=== PATIENT | male | born 1960 | race African-American/Black ===

== ENCOUNTER → 2020-02-21 | Outpatient (CLI) | payer OTHER ==
--- NOTE | 2020-02-21 15:47 | RAD ---
EXAM: Left second finger 3 views. HISTORY: Left second finger synovitis, pain. COMPARISON: None. FINDINGS: There is soft tissue swelling along the left second digit. There is a small erosion along the radial aspect of the second proximal phalangeal head. There is mild osteoarthritis at the first carpometacarpal and first through third metacarpophalangeal joints. Alignment is maintained. IMPRESSION: 1. An erosion along the second proximal interphalangeal joint is consistent with an inflammatory arthritis. Correlate with other clinical data. 2. Mild osteoarthritis elsewhere as above. Electronically signed by: Rita Bonilla MD (02/21/2020 3:44 PM) [id number]
== END | disposition home or self-care (01) ==
LOC: RAD 14:49
PROVIDERS: ATTEND Family Medicine
DX: M18.12 Unilateral primary osteoarthritis of first carpometacarpal joint, left hand (principal); M19.042 Primary osteoarthritis, left hand; M65.9 Synovitis and tenosynovitis, unspecified
CPT/HCPCS: 73140

== ENCOUNTER → 2021-04-27 | Outpatient (CLI) | payer OTHER ==
--- NOTE | 2021-04-27 12:52 | PDOC1 ---
INITIAL PAIN CONSULT DATE OF SERVICE: DOS: DATE: 04/27/21 TIME: 12:45 CHIEF COMPLAINT: Chief Complaint: Neck and left upper extremity pain HISTORY OF PRESENT ILLNESS: 60-year-old male presents history of pain in the base the neck and left upper extremity for about 2 months now not resolve any specific injury or accident that he is aware of but significant with pain in the left shoulder arm rating to the hand numbness and tingling in the thumb and first and second fingers also into the forearm patient reports it is worse anteriorly worse with repetitive motions lifting driving his car, reaching or lifting items over his head easily left arm also difficulty with sleeping. Patient describes pain as sharp stabbing throbbing shooting changes during the day with activity tingling with numbness in the hand and arm on the left side burning and aching as well. 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 Patient did have an MRI scan of the cervical spine showing degenerative changes throughout the cervical spine with spinal canal stenosis greatest at C3-4 multiple levels of high-grade bilateral foraminal narrowing specially C4-5 C5-6 C6-7 and C7-T1 left greater than right at C6-7. 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 PHYSICAL EXAM: VS: Blood pressure is 172/81 pulse 55 respirations 16 temperature 98.3 F height is 71.5 inches weight is 408 pounds PE: PHYSICAL EXAMINATION: GENERAL: The patient is awake, alert, oriented, appropriate, very pleasant in demeanor HEENT: Shows normocephalic, atraumatic. Extraocular movements are intact and symmetrical. Oral cavity: Mucous membranes moist and pink. Dentition is intact. NECK: Shows anterior throat supple without palpable lymphadenopathy noted. Swallow reflex symmetrical. CHEST: Shows normal on inspection. Breath sounds are clear bilaterally, distant no rales rhonchi or wheeze auscultated. HEART: Shows S1, S2 clear. No murmurs auscultated. ABDOMEN: Soft, nontender, nondistended. No palpable organomegaly is noted. No rebound or guarding demonstrated. BACK: Shows spine grossly in the midline. Normal-appearing cervical lordotic curvature. Cervical paraspinous muscles show symmetrical inspection, palpation some moderate tenderness diffusely in the middle and lower distribution of the posterior cervical musculature but without radiation also is tender into the superior medial trapezius bilaterally worse on the left than the right. Patient shows good rotation motion cervical spine with significant tenderness with left lateral rotation past 45 degrees nontender with right lateral rotation but significant tenderness with extension not with forward flexion only on the left side. There is increased thoracic kyphosis, some flattening of the lumbar lordotic curvature. EXTREMITIES: Upper extremities show deep tendon reflexes 2+ in the biceps and triceps tendons. 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 Peripheral pulses are 2+ radial. No peripheral edema is noted bilaterally. Upper extremities are warm and dry to touch, equal in color and appearance. Shoulder shrug strong intact without loss strength on resistance bilaterally but with moderate pain ported with resistance history with abduction of the shoulder 90 degrees on the left side only as well. SKIN: Shows warm and dry, good turgor. No edema. No sores, rashes or bruising throughout. IMPRESSION: Impression: 60-year-old male with proximate 2-month history of pain base the neck left upper extremity radicular fashion following a C6-7 dermatomal distribution. MRI scan cervical spine as noted Arthritis Hypertension Obesity Obstructive sleep apnea Hyperlipidemia Plan: Options were discussed with the patient including conservative management continued physical therapy and chiropractic treatment as well as interventional techniques. Patient elects interventional techniques. We discussed a cervical epidural steroid injection using description as well as anatomical models to describe the procedure. Patient will wait for preauthorization with his insurance provider, once preauthorized we will plan on translaminar approach C6- 7 level cervical epidural steroid injection with fluoroscopic guidance. In the meantime, patient will continue with stretching strength exercises, oral analgesics, as well as chiropractic treatment as currently. RAMONE DEJESUS MD Apr 27, 2021 12:52
== END | disposition home or self-care (01) ==
LOC: PNCL 11:35
PROVIDERS: ATTEND Anesthesiology
DX: M54.2 Cervicalgia (principal); M79.602 Pain in left arm; M19.90 Unspecified osteoarthritis, unspecified site; G47.33 Obstructive sleep apnea (adult) (pediatric); E78.5 Hyperlipidemia, unspecified; E66.9 Obesity, unspecified; I10 Essential (primary) hypertension; Z82.49 Family history of ischemic heart disease and other diseases of the circulatory system; Z79.899 Other long term (current) drug therapy; Z98.890 Other specified postprocedural states
CPT/HCPCS: 99214; G0463

== ENCOUNTER → 2021-04-29 | Outpatient (CLI) | payer OTHER ==
[~2021-04-29] MED LIST: ALLO300T PO; COLC0.6C PO; IOHEXOL 180 MG/ML 10 ML VIAL. ONE; LISI20TA18 PO; TERA10CA3 PO; methylPREDNISolone ACETATE 80 MG/ML VIAL. ONE
--- NOTE | 2021-04-29 15:55 | PDOC ---
Progress Note - Pain Clinic Date of Service: DOS: DATE: 04/29/21 TIME: 15:50 Diagnosis: Dx: Cervical radiculopathy with cervical degenerative disease and cervical spinal stenosis History or Present Illness: HPI: 60-year-old male returns for follow-up status post evaluation and turns reporting significant pain base the neck and left upper extremity shoulder arm as well as into the hand with numbness and tingling in the finger especially the thumb and first and second fingers at this time. Patient reports worse with repetitive motions or reaching lifting driving patient reports pain is a 10 on scale 10 is worse over the past week 7 on average to its least is a 2 today patient ports tingling burning stabbing radiating into the left shoulder and upper extremity. Patient reports awakening from sleep about every 2-3 hours as well. Patient reports no deficits but significant fatigability with the left u pper extremity compared to the right. Reviewed patient's MRI scan with him once again showing a degenerative changes throughout with stenosis C3-4 multiple levels of high-grade bilateral neuroforaminal narrowing C6-7 with high-grade left greater than right neuroforaminal narrowing. Physical Exam: VS: Blood pressure is 160/75 pulse 83 respirations 16 temperature is 98.7 F height is 71.5 inches weight is 408 pounds PE: PHYSICAL EXAMINATION: GENERAL: The patient is awake, alert, oriented, appropriate, very pleasant in demeanor HEENT: Shows normocephalic, atraumatic. Extraocular movements are intact and symmetrical. Oral cavity: Mucous membranes moist and pink. Dentition is intact. NECK: Shows anterior throat supple without palpable lymphadenopathy noted. Swallow reflex symmetrical. CHEST: Shows normal on inspection. Breath sounds are clear bilaterally, no rales rhonchi wheezes. HEART: Shows S1, S2 clear. No murmurs auscultated. ABDOMEN: Soft, nontender, nondistended, obese. No palpable organomegaly is noted. BACK: Shows spine grossly in the midline. Normal-appearing cervical lordotic curvature. Cervical paraspinous muscles show symmetrical with inspection, on palpation some moderate tenderness to see in the middle lower decrease the paraspinous muscles more on the left than the right with moderate tenderness in the superior medial trapezius as well on the left side but without specific trigger points or radiation. Patient shows good rotation of motion with cervical spine with some significant tenderness with left lateral rotation as well as extension but not with forward flexion or right lateral rotation. EXTREMITIES: Upper extremities show deep tendon reflexes 2+ in the biceps and triceps tendons. Motor exam is 5 on a scale of 5 with right coil tier, biceps and triceps flexion and 4/5 on the left. Peripheral pulses are 2+ radial. No peripheral edema is noted bilaterally. Upper extremities are warm and dry to touch, equal in color and appearance. SKIN: Shows warm and dry, good turgor. No edema. No sores, rashes or bruising throughout. Procedure: Procedure: Options discussed with patient. Patient chart was reviewed his current medication regimen updated current review of systems updated today as well. We will proceed with a cervical epidural steroid injection today with fluoroscopic guidance. Risks were discussed including but not limited to: Bleeding, infection, possibility of epidural hematoma and subsequent neurological compromise, dural puncture, headaches, spinal cord and/or nerve damage, side effects of steroid medication, and poor results regarding pain control. Patient understands and wished to proceed. Patient will return to the clinic in approximate 2 weeks for follow-up, was counseled as return appointment, typical, and side effect to be aware of. Medication Injected: Med Injected: Procedure cervical epidural steroid injection at the C6-7 level, using local anesthetic under sterile prep and drape using C-arm fluoroscopic guidance under local anesthesia medications injected ;120 mg Depo-Medrol +5 mL normal saline and 2 mL contrast; condition at discharge is stable patient tolerated procedure well. and had no complications Condition at Discharge: Condition at Discharge: Condition at discharge stable, patient already procedure well and had no complications. RAMONE DEJESUS MD Apr 29, 2021 15:55
--- NOTE | 2021-04-29 15:56 | PDOC4 ---
Procedure Note: ICD 10 Code: ICD 10 Code: M54.12 M4 8.02 M50.30 Procedure Note: Patient was consented for cervical epidural steroid injection with fluoroscopic guidance. Risks were discussed including but not limited to: Bleeding, infection, possibility of epidural hematoma and subsequent neurological compromise, dural puncture, headaches, spinal cord and/or nerve damage, side effects of steroid medication, and poor results regarding pain control. Patient understands and wished to proceed. Procedure cervical epidural steroid injection at the C6-7 level, using local anesthetic under sterile prep and drape using C-arm fluoroscopic guidance under local anesthesia medications injected ;120 mg Depo-Medrol +5 mL normal saline and 2 mL contrast; condition at discharge is stable patient tolerated procedure well. and had no complications RAMONE DEJESUS MD Apr 29, 2021 15:55
== END | disposition home or self-care (01) ==
LOC: PNCL 15:09
PROVIDERS: ATTEND Anesthesiology
DX: M50.10 Cervical disc disorder with radiculopathy, unspecified cervical region (principal); M48.02 Spinal stenosis, cervical region; Z79.899 Other long term (current) drug therapy
CPT/HCPCS: 62321; J1040; Q9965

== ENCOUNTER → 2021-05-27 | Outpatient (CLI) | payer OTHER ==
[~2021-05-27] MED LIST changes: -IOHEXOL 180 MG/ML 10 ML VIAL. ONE; -methylPREDNISolone ACETATE 80 MG/ML VIAL. ONE
--- NOTE | 2021-05-27 15:31 | PDOC ---
Progress Note - Pain Clinic Date of Service: DOS: DATE: 05/27/21 TIME: 15:25 Diagnosis: Dx: Cervical radiculopathy with cervical degenerative disease and cervical spinal stenosis History or Present Illness: HPI: 60-year-old male returns for follow-up status post cervical epidural steroid action x1. Patient reports about 80% improvement in the shoulder and left upper extremity patient reports her shoulder is much better his left arm still has some radicular pain radiating into the posterior deltoid posterior triceps into the forearm as well in the anterior forearm on the left side only patient reports some mild fatigue with the left arm but no loss of motor function patient reports he been increase activities greater ease and comfort doing household activities travel with greater ease and comfort and sleeping better at night since the injection. Patient is quite pleased with his progress reports i t is a 6 on scale 10 is worse over the past week 2 on average 0 its least is a 2 today patient reports is tingling and aching as shooting into the arm and the hand as noted. Patient reports no motor deficits but again significant fatigability with the left arm with repetitive motions lifting and reaching bringing and lifting items towards him. Physical Exam: VS: Blood pressure is 149/76 pulse 79 respirations 18 temperature 90.5 F height is 71.5 inches and weight is 402 pounds PE: PHYSICAL EXAMINATION: GENERAL: The patient is awake, alert, oriented, appropriate, very pleasant in demeanor HEENT: Shows normocephalic, atraumatic. Extraocular movements are intact and symmetrical. Oral cavity: Mucous membranes moist and pink. Dentition is intact. NECK: Shows anterior throat supple without palpable lymphadenopathy noted. Swallow reflex symmetrical. CHEST: Shows normal on inspection. Breath sounds are clear bilaterally, distant but no rales or rhonchi. HEART: Shows S1, S2 clear. No murmurs auscultated. ABDOMEN: Soft, nontender, nondistended, obese. No palpable organomegaly is n oted. BACK: Shows spine grossly in the midline. Normal-appearing cervical lordotic curvature. Cervical paraspinous muscles show symmetrical with inspection on palpation some moderate tenderness diffusely but only diffusely without significant radiation patient shows good rotation of motion of the cervical spine both laterally with some moderate tenderness with far left lateral ro tation and extension better with forward flexion and right lateral rotation was performed without difficulty. There is slightly increased thoracic kyphosis, some minor flattening of the lumbar lordotic curvature. EXTREMITIES: Upper extremities show deep tendon reflexes 2+ in the biceps and tricep tendons. Motor exam is 5 on a scale of 5 with right baker apprentice, biceps and triceps flexion and 4/5 on the left. Peripheral pulses are 2+ radial. No peripheral edema is noted bilaterally. Upper extremities are warm and dry to touch, equal in color and appearance. Shoulder shrug strong intact without loss of strength on resistance bilaterally. SKIN: Shows warm and dry, good turgor. No edema. No sores, rashes or bruising throughout. Procedure: Procedure: Options discussed with the patient. Patient's old chart was reviewed as was his his current medication regimen updated, and current review of systems updated today as well. We will preauthorize patient for a cervical epidural steroid injection as he did extremely well with the first injection with the pain returning in a radicular fashion following C6-7 dermatomal distribution on the left upper extremity. Will call in Medrol Dosepak with instructions side effects to be aware of discussed. Patient will return once approved and will proceed with a translaminar approach C6-7 level cervical epidural steroid in jection with fluoroscopic guidance. In the meantime, patient will continue with stretching and strength exercises as tolerated. Medication Injected: Med Injected: None Condition at Discharge: Condition at Discharge: Condition at discharge is stable. RAMONE DEJESUS MD May 27, 2021 15:31
== END | disposition home or self-care (01) ==
LOC: PNCL 14:37
PROVIDERS: ATTEND Anesthesiology
DX: M50.10 Cervical disc disorder with radiculopathy, unspecified cervical region (principal); M48.02 Spinal stenosis, cervical region; Z79.899 Other long term (current) drug therapy
CPT/HCPCS: 99212; G0463

== ENCOUNTER → 2021-06-17 | Outpatient (CLI) | payer OTHER ==
[~2021-06-17] MED LIST changes: +IOHEXOL 180 MG/ML 10 ML VIAL. ONE; +methylPREDNISolone ACETATE 40 MG/ML VIAL. ONE; +methylPREDNISolone ACETATE 80 MG/ML VIAL. ONE
--- NOTE | 2021-06-17 15:43 | PDOC4 ---
Procedure Note: ICD 10 Code: ICD 10 Code: M54.12 M 48.02 M50.30 Procedure Note: Patient was consented for cervical epidural steroid injection with fluoroscopic guidance. Risks were discussed including but not limited to: Bleeding, infection, possibility of epidural hematoma and subsequent neurological compromise, dural puncture, headaches, spinal cord and/or nerve damage, side effects of steroid medication, and poor results regarding pain control. Patient understands and wished to proceed. Procedure cervical epidural steroid injection at the C6-7 level, using local anesthetic under sterile prep and drape using C-arm fluoroscopic guidance under local anesthesia medications injected ;120 mg Depo-Medrol +5 mL normal saline and 2 mL contrast; condition at discharge is stable patient tolerated procedure well. and had no complications RAMONE DEJESUS MD Jun 17, 2021 15:43
--- NOTE | 2021-06-17 15:43 | PDOC ---
Progress Note - Pain Clinic Date of Service: DOS: DATE: 06/17/21 TIME: 15:39 Diagnosis: Dx: Cervical radiculopathy with cervical degenerative disease and cervical spinal stenosis History or Present Illness: HPI: Cervical -hynr-ifn male returns for follow-up status post her injection most recently April 29 the patient did very well with the pain returning now into the left upper extremity and not so much pain but more numbness patient reports he had numbness in the right hand now as well has a new finding for him but is only intermittent patient reports that the right arm is generally not numb but occasionally will be but his left arm is persistently numb patient reports is dull and achy at times as well but mostly numbness in the entire left arm mostly the posterior deltoid triceps and forearm and into the hand is also into the anterior forearm on the left and in the right hand as well intermittently. Patient reports no new motor or sensory deficits. Patient reports is better with sitting or resting generally does not awaken from sleep at night patient rates pain a 6 on scale 10 is worse over the past week to an average and to its least is a 2 today patient describes it as dull and numb again no motor loss but significant fatigability of left upper extremity with repetitive motions and lifting. Physical Exam: VS: Blood pressure is 160/90 pulse 79 respirations 18 temperature 98.9 F height is 6 foot weight is 406 pounds PE: PHYSICAL EXAMINATION: GENERAL: The patient is awake, alert, oriented, appropriate, very pleasant in demeanor HEENT: Shows normocephalic, atraumatic. Extraocular movements are intact and symmetrical. Oral cavity: Mucous membranes moist and pink. Dentition is intact. NECK: Shows anterior throat supple without palpable lymphadenopathy noted. Swallow reflex symmetrical. CHEST: Shows normal on inspection. Breath sounds are clear bilaterally, distant but no rales or. HEART: Shows S1, S2 clear. No murmurs auscultated. ABDOMEN: Soft, nontender, nondistended, obese. No palpable organomegaly is noted. BACK: Shows spine grossly in the midline. Normal-appearing cervical lordotic curvature. Cervical paraspinous muscles show symmetrical inspection, on palpation some moderate tenderness diffusely bilaterally diffusely without significant radiation into the superior medial trapezius as well and without trigger points. Patient has full rotation motion of the cervical spine both laterally as well as extension flexion without significant difficulty. There is slightly increased thoracic kyphosis, some minor flattening of the lumbar lordotic curvature. EXTREMITIES: Upper extremities show deep tendon reflexes 2+ in the biceps and triceps tendons. Motor exam is 5 on a scale of 5 with right medical physicist, biceps and triceps flexion and 4/5 on the left. Peripheral pulses are 2+ radial. No peripheral edema is noted bilaterally. Upper extremities are warm and dry to touch, equal in color and appearance. SKIN: Shows warm and dry, good turgor. No edema. No sores, rashes or bruising throughout. Procedure: Procedure: Options were discussed with patient. Patient chart reviews his current medication regimen updated current review of systems updated today as well. We will proceed with a cervical epidural steroid injection today with fluoroscopic guidance. Risks were discussed including but not limited to: Bleeding, infection, possibility of epidural hematoma and subsequent neurological compromise, dural puncture, headaches, spinal cord and/or nerve damage, side effects of steroid medication, and poor results regarding pain control. Patient understands and wished to proceed. Patient return to clinic in approximate 2 weeks for follow-up, was counseled return appointment, activity level, and side effects to be aware of. Medication Injected: Med Injected: Procedure cervical epidural steroid injection at the C6-7 level, using local anesthetic under sterile prep and drape using C-arm fluoroscopic guidance under local anesthesia medications injected ;120 mg Depo-Medrol +5 mL normal saline and 2 mL contrast; condition at discharge is stable patient tolerated procedure well. and had no complications Condition at Discharge: Condition at Discharge: Condition at discharge stable, patient tolerated procedure well and had no complications. RAMONE DEJESUS MD Jun 17, 2021 15:43
== END | disposition home or self-care (01) ==
LOC: PNCL 15:11
PROVIDERS: ATTEND Anesthesiology
DX: M50.10 Cervical disc disorder with radiculopathy, unspecified cervical region (principal); M48.02 Spinal stenosis, cervical region; Z79.899 Other long term (current) drug therapy
CPT/HCPCS: 62321; J1030; J1040; Q9965